=== PATIENT | male | born 1970 | race Two or more races ===

== ENCOUNTER 2020-03-07 06:51 | Emergency (ER) | payer OTHER ==
[2020-03-07 07:17] VITALS: BMI 32.6
--- NOTE | 2020-03-07 08:06 | PDOC ---
History of Present Illness - General Chief Complaint: Eye Problem Stated Complaint: EYE PROBLEM Time Seen by Provider: 03/07/20 08:05 - History of Present Illness Initial Comments: 49M presents with no PMH presents with left eye burning and pain that started last night and has been constant. He does not wear contacts. Denies vision loss, flashing lights, foreign body in eye, eye itching, drainage, headache, or fever. PMH: none SH: none Meds: none Allergies: NKDA Past History - Medical History Allergies/Adverse Reactions: Allergies Allergy/AdvReac Type Severity Reaction Status Date / Time No Known Allergies Allergy Verified 03/07/20 07:17 Home Medications: Ambulatory Orders Oxycodone HCl/Acetaminophen [Percocet 5/325 -] 1 - 2 tab PO Q6H PRN #12 tab 06/20/15 Erythromycin 0.5% Eye Ointment [Erythromycin 0.5% Eye Ointment -] 1 applic OS ONCE #1 tube 03/07/20 COPD: No - Psycho-Social/Smoking History Smoking History: Never smoked Information on smoking cessation initiated: No - Substance Abuse Hx (Audit-C & DAST Scrn) How often the patient has a drink containing alcohol: Never Score: In Men: 4 or > Positive; In Women: 3 or > Positive: 0 Screen Result (Pos requires Nsg. Audit-10AR): Negative In the last yr the pt used illegal drug/Rx for NonMed reason: No Score: Yes response is considered Positive: 0 Screen Result (Positive result requires Nsg. DAST-10): Negative Review of Systems - Review of Systems Able to Perform ROS?: Yes Is the patient limited Togolese proficient: Yes Constitutional: No: Fever HEENTM: Yes: Eye Pain. No: Tearing, Ear Pain Respiratory: No: Cough, Shortness of Breath Cardiac (ROS): No: Chest Pain, Chest Tightness ABD/GI: No: Constipated, Diarrhea, Nausea, Vomiting : No: Burning, Dysuria Neurological: No: Headache All Other Systems: Reviewed and Negative *Physical Exam - Vital Signs Last Vital Signs Temp Pulse Resp BP Pulse Ox 98.7 F 78 19 140/89 99 03/07/20 07:16 03/07/20 07:16 03/07/20 07:16 03/07/20 07:16 03/07/20 07:16 - Physical Exam General Appearance: Yes: Nourished, Appropriately Dressed. No: Apparent Distress HEENT: positive: EOMI, YUMIKO, Other (left eye redness without periorbital swelling or pain, small swelling on left upper eyelid ridge, visual acuity symmetric: OD 20/30, OD 20/30). negative: Photophobia Respiratory/Chest: positive: Lungs Clear, Normal Breath Sounds Cardiovascular: positive: Regular Rhythm, Regular Rate, S1, S2 Integumentary: positive: Normal Color, Dry, Warm Neurologic: positive: Alert, Normal Mood/Affect Medical Decision Making - Medical Decision Making 49M presents with no PMH presents with left eye burning and pain that started last night and has been constant. Exam was remarkable for left eye erythema with small swelling on upper eyelid. No tracer uptake so unlikely corneal abrasion. No vision loss or flashing lights and symmetrical visual acuity, so low likelih ood of acute angle closure glaucoma, central retinal artery occlusion, or retinal detachment. Likely hordeolum or conjunctivitis. No further workup was indicated. Patient is stable for discharge with prescription for erythromycin ointment and advised to use warm compresses. Discharge - Discharge Information Problems reviewed: Yes Clinical Impression/Diagnosis: Irritation of left eye Condition: Stable Disposition: HOME - Admission No - Additional Discharge Information Prescriptions: Erythromycin 0.5% Eye Ointment [Erythromycin 0.5% Eye Ointment -] 1 applic OS ONCE #1 tube - Follow up/Referral Referrals: Yadira Giron MD [Primary Care Provider] - - Patient Discharge Instructions Patient Printed Discharge Instructions: DI for Conjunctivitis, DI for Hordeolum Additional Instructions: You came into the ED for left eye pain and burning. We examined the eye and did not show any evidence of corneal abrasions and your vision was fine. It is likely a stye or conjunctivitis. We are sending you a prescription for antibacterial ointment. Return to the ED if you have vision loss or worsening eye pain. Llegaste al servicio de urgencias por dolor y ardor en el dirk alexx. Examinamos el dirk y no mostramos evidencia de abrasiones corneales y veras visin estaba jorge. Es probable que sea un orzuelo o conjuntivitis. Le enviamos kathy receta para ungento antibacteriano. Regrese al servicio de urgencias si tiene prdida de visin o empeora el dolor ocular. Print Language: SINHALA - Post Discharge Activity
[2020-03-07] MEDS ORDERED: TETRACAINE 0.5% HCL 0.6ML DROPPER.BOTTLE OS ONE (08:15)
[2020-03-07] MEDS ORDERED: TETRACAINE 0.5% OPHTH SOLN 2 ML BOTTLE ONE ×2 (08:15→08:33)
[2020-03-07] MEDS ORDERED: FLUORESCEIN NA 1 EA STRIP OS ONE (08:15)
[2020-03-07] MEDS ORDERED: FLUORESCEIN NA 1 EA STRIP ONE ×2 (08:15→08:33)
--- NOTE | 2020-03-07 08:59 | PDOC ---
Attending Attestation - Resident Resident Name: Ortiz Alejandra - ED Attending Attestation I have performed the following: I have examined & evaluated the patient, The case was reviewed & discussed with the resident, I agree w/resident's findings & plan - HPI HPI: 03/07/20 08:50 healthy 49y/o M p/w atraumatic L eye irritation since last night. pain with ROM but no vision change/headache/f/c/photophobia. no h/o recurring eye infection. does not wear contact lenses. no FB to his knowledge. - Physicial Exam PE: 03/07/20 08:53 vss, alert, nad early Left conjunctival injection medially without chemosis, eyelids intact, no FB on gross or slit lamp exam, no corneal abrasion on fluorescin analysis. VA normal b/l neuro nl - Medical Decision Making 03/07/20 08:59 49y/o M with atraumatic L eye irritation, no FB, VA intact. likely early conjunctivitis, no other red flags on history or exam. d/c with erythromycin ointment ophtho referral understands return criteria Discharge - Discharge Information Problems reviewed: Yes Clinical Impression/Diagnosis: Irritation of left eye Condition: Stable Disposition: HOME - Follow up/Referral Referrals: Yadira Giron MD [Primary Care Provider] - - Patient Discharge Instructions - Post Discharge Activity
[2020-03-07 09:51] VITALS: BP 129/86; PULSE 62; TEMP 97.8
== END 2020-03-07 09:51 | disposition home or self-care (01) ==
LOC: JER 06:51
DX: H57.89 Other specified disorders of eye and adnexa (principal)
CPT/HCPCS: 99283-25